=== PATIENT | male | born 1980 | race Caucasian/White ===

== ENCOUNTER 2017-10-07 20:39 | Emergency (ER) | payer SELFPAY | END 2017-10-07 20:58 | disposition left against medical advice (07) | LOC: ER 20:39 | DX: S09.90XA Unspecified injury of head, initial encounter (principal); X58.XXXA Exposure to other specified factors, initial encounter ==

== ENCOUNTER 2022-11-04 12:40 | Emergency (ER) | payer OTHER ==
[~2022-11-04] VITALS: Ht 185 cm; Wt 118.0 kg
[2022-11-04] MEDS ORDERED: ORPHENADRINE 60 MG/2 ML (NORFLEX) AMP (ED ONLY) IM ONE (14:15)
[2022-11-04] MEDS ORDERED: KETOROLAC 60 MG/2 ML VIAL IM ONE (14:15)
--- NOTE | 2022-11-04 14:17 | ED Back Pain ---
General Chief Complaint: Back Problems Stated Complaint: FELL OFF OF HORSE | LOWER BACK PAIN Nursing Triage Note: PT FELL BUCKED OFF HORSE ON THURSDAY, PT HAD +LOC, PT WAS HIT IN HEAD BY HORSE HEAD. TODAY CO OF BACK PAIN, PT HAS PAIN IN LOWER BACK DOWN L LEG. PT DENIES PROB W URINATION OR BOWEL, PT CO OF PAIN WORSENING WHEN TRIES TO GET OUT OF CARS OR TRUCKS RATES PAIN 02/05 Source of Information: Patient Exam Limitations: No Limitations History of Present Illness Date Seen by Provider: November 04, 2022 Time Seen by Provider: 14:06 Initial Comments 42-year-old male presents to the ED with complaints of left lower back pain starting Thursday. States that he was bucked off a horse, his foot got stuck in a stirrup, and he landed on his upper back and shoulders. States that he first noted some left lower back pain after he fell off the horse, but states it was mild. He reports that he was able to rope after the injury, but reports that the pain got worse. He denies loss of bowel or bladder, saddle paresthesia, numbness, tingling of legs. Reports his left leg "feels funny," like it is about to go to sleep, but states he has normal sensation. He states that he lost consciousness when he fell off the horse, thinks he might of hit his head. He reports his loss of consciousness was approximately 4 to 5 seconds. Reports some nausea since the head injury, denies vomiting. Denies confusion, difficulty with normal activities aside from and back pain causes difficulties, abnormal behavior, difficulty walking. Allergies and Home Medications Allergies Coded Allergies: No Known Drug Allergies (Unverified , 11/04/22) Patient Home Medication List Home Medication List Reviewed: Yes Baclofen (Baclofen) 10 Mg Tablet, 10 MG PO TID Prescribed by: Sowmya Murphy on 11/04/22 6616 Review of Systems Constitutional: see HPI Past Evdcnxb-Qhatlc-Llvkbk Hx Patient Social History Tobacco Use?: No Substance use?: No Alcohol Use?: Yes Alcohol type: Beer Alcohol Frequency: Couple times a week Immunizations Up To Date Influenza Vaccine Up-to-Date: No; Not Current First/Initial COVID19 Vaccinat: YES Past Medical History Surgery/Hospitalization HX: NO MED HX Physical Exam Vital Signs Vital Signs - First Documented 11/04/22 11/04/22 12:59 14:45 Temp 36.8 Pulse 74 Resp 16 B/P (MAP) 166/117 (133) Pulse Ox 97 O2 Delivery Room Air Capillary Refill : Less Than 3 Seconds Height, Weight, BMI Height: '" Weight: lbs. oz. kg; 34.00 BMI Method: General Appearance: No Apparent Distress, WD/WN HEENT: PERRL/EOMI Neck: Full Range of Motion, Normal Inspection, Non Tender, Supple Cardiovascular: Regular Rate, Rhythm Respiratory: Lungs Clear, Normal Breath Sounds, No Accessory Muscle Use, No Respiratory Distress Back: No Vertebral Tenderness, Muscle Spasm (Left lower back muscle tenderness to palpation) Extremity: Normal Inspection, Normal Range of Motion Neurologic/Psychiatric: Alert, No Motor/Sensory Deficits, Normal Mood/Affect Skin: Normal Color, Warm/Dry Progress/Results/Core Measures Results/Orders My Orders Orders - SOWMYA MURPHY APRN Ketorolac Injection (Toradol Injection) (11/04/22 14:15) Orphenadrine Inj (Ed Only) (Norflex Inje (11/04/22 14:15) Medications Given in ED Vital Signs/I&O 11/04/22 11/04/22 12:59 14:45 Temp 36.8 36.8 Pulse 74 70 Resp 16 16 B/P (MAP) 166/117 (133) 160/84 Pulse Ox 97 99 O2 Delivery Room Air Blood Pressure Mean: 133 Progress Progress Note : Time: 14:25 Progress Note Patient seen and evaluated, resting comfortably in bed, no acute distress. Based on exam and symptoms, this is likely a muscle strain. Muscles and left lower back are very tender to minimal palpation. No vertebral tenderness or step-offs. Considered CT head and neck, but deferred because [place] CT head rule is low risk, [place] C-spine rule also low risk. Will treat with Toradol and Norflex. And discharged with muscle relaxer. Discharge instructions and r eturn precautions provided. Departure Impression Primary Impression: Back strain Disposition: 01 HOME, SELF-CARE Condition: Stable Departure-Patient Inst. Decision time for Depature: 14:33 Referrals: LITTLE SERRANO DO (PCP/Family) Primary Care Physician Patient Instructions: Back Muscle Strain (DC) Add. Discharge Instructions: You may take 800 mg of ibuprofen every 8 hours with food to help with pain and inflammation. You may take 1000 mg of Tylenol every 8 hours for pain. Take baclofen as needed for muscle pain, it may make you sleepy. Follow-up with your primary care provider if symptoms are not improving. Return for severe pain, inability to walk, numbness or tingling in your inner thighs, loss of bowel or bladder, confusion, inability to perform normal activities, recurrent vomiting, or any other new, concerning, or worsening symptoms. All discharge instructions reviewed with patient and/or family. Voiced understanding. Scripts Baclofen (Baclofen) 10 Mg Tablet 10 MG PO TID, #21 TAB 0 Refills Prov: SOWMYA MURPHY APRN 11/04/22 SOWMYA MURPHY APRN November 04, 2022 14:17
[2022-11-04] MEDS ORDERED: BACL10TA PO (14:36)
[2022-11-04 14:45] VITALS: BP 160/84
== END 2022-11-04 14:45 | disposition home or self-care (01) ==
LOC: EDUNIT# 12:40 → ER 12:43
DX: M54.50 Low back pain, unspecified (principal); V80.010A Animal-rider injured by fall from or being thrown from horse in noncollision accident, initial encounter; Y93.52 Activity, horseback riding
CPT/HCPCS: 99284

== ENCOUNTER 2022-12-14 23:20 | Emergency (ER) | payer OTHER ==
[~2022-12-14] VITALS: Ht 182.9 cm; Wt 113.4 kg
[~2022-12-14 23:20] MED LIST: BACL10TA PO
[2022-12-15] MEDS ORDERED: KETOROLAC 30 MG/ML VIAL IVP STA (01:02)
[2022-12-15] MEDS ORDERED: LACTATED RINGERS 1,000 ML IV ONE (01:15)
[2022-12-15] MEDS ORDERED: ONDANSETRON 4 MG/2 ML (SDV) Z0FRAN IVP ONE (01:15)
[2022-12-15 01:22] LABS: BASOPHILS # (AUTO) 0.1 10^3/uL (0.0-0.1); BASOPHILS % (AUTO) 1 % (0-10); EOSINOPHILS # (AUTO) 0.3 10^3/uL (0.0-0.3); EOSINOPHILS % (AUTO) 4 % (0-10); HEMATOCRIT 39 % (40-54); HEMOGLOBIN 13.8 g/dL (13.3-17.7); LYMPHOCYTES # (AUTO) 3.2 10^3/uL (1.0-4.0); LYMPHOCYTES % (AUTO) 38 % (12-44); MEAN CORPUSCULAR HEMOGLOBIN 33 pg (25-34); MEAN CORPUSCULAR HGB CONC 35 g/dL (32-36); MEAN CORPUSCULAR VOLUME 95 fL (80-99); MEAN PLATELET VOLUME 10.5 fL (9.0-12.2); MONOCYTES # (AUTO) 0.7 10^3/uL (0.0-1.0); MONOCYTES % (AUTO) 9 % (0-12); NEUTROPHILS % (AUTO) 48 % (42-75); PLATELET COUNT 258 10^3/uL (130-400); WHITE BLOOD COUNT 8.3 10^3/uL (4.3-11.0)
[2022-12-15 01:24] LABS: BILIRUBIN,URINE NEGATIVE (NEGATIVE); CLARITY,URINE CLEAR; COLOR,URINE YELLOW; GLUCOSE, URINE (UA) NEGATIVE (NEGATIVE); KETONES,URINE NEGATIVE (NEGATIVE); LEUKOCYTE ESTERASE ,URINE NEGATIVE (NEGATIVE); NITRITE,URINE NEGATIVE (NEGATIVE); PH,URINE 7.5 (5-9); PROTEIN,URINE NEGATIVE (NEGATIVE)
[2022-12-15 01:29] LABS: CHLORIDE 103 MMOL/L (98-107); SODIUM 137 MMOL/L (135-145)
[2022-12-15 01:30] LABS: AMYLASE 36 U/L (25-125); CALCIUM 9.2 MG/DL (8.5-10.1)
[2022-12-15 01:31] LABS: GLUCOSE 115 MG/DL (70-105); TOTAL PROTEIN 6.7 GM/DL (6.4-8.2)
[2022-12-15 01:32] LABS: CARBON DIOXIDE 26 MMOL/L (21-32)
[2022-12-15 01:33] LABS: BILIRUBIN,TOTAL 0.4 MG/DL (0.1-1.0)
[2022-12-15 01:35] LABS: ALKALINE PHOSPHATASE 72 U/L (40-136); GFR ESTIMATED 111
[2022-12-15 01:36] LABS: BUN/CREATININE RATIO 21
[2022-12-15 01:38] LABS: AMPHETAMINE SCREEN, URINE NEGATIVE (NEGATIVE); BARBITURATE SCREEN URINE NEGATIVE (NEGATIVE); BENZODIAZEPINES SCREEN URINE NEGATIVE (NEGATIVE); CANNABINOID SCREEN, URINE NEGATIVE (NEGATIVE); COCAINE SCREEN URINE NEGATIVE (NEGATIVE); METHADONE STAT NEGATIVE (NEGATIVE); OPIATE SCREEN URINE NEGATIVE (NEGATIVE); OXYCODONE STAT NEGATIVE (NEGATIVE); PROPOXYPHENE STAT NEGATIVE (NEGATIVE); TRICYCLIC ANTIDEPRESSANTS SCRE NEGATIVE (NEGATIVE)
[2022-12-15 01:38] LABS: ALANINE AMINOTRANSFERASE 14 U/L (0-55)
[2022-12-15 01:39] LABS: AMORPHOUS SEDIMENT,UR LARGE AMOR PHOSPHATE /LPF; BACTERIA,URINE NEGATIVE /HPF
[2022-12-15 01:39] LABS: LIPASE 21 U/L (8-78)
[2022-12-15] MEDS ORDERED: PANT40TA2 PO (02:22)
[2022-12-15] MEDS ORDERED: KETO10TA PO (02:22)
[2022-12-15] MEDS ORDERED: ONDA8TAB13 PO (02:22)
--- NOTE | 2022-12-15 02:23 | ED Abdominal Pain ---
General Chief Complaint: Abdominal/GI Problems Stated Complaint: GALLBLADDER ATTACK Nursing Triage Note: pt ambulatory to room. states he has hx of gallbladder attack. states pain this evening was so bad it caused him to vomit. states he has right middle abd pain that wraps around to back. pt is A&Ox4, speech normal on arrival. pt at bedside Source of Information: Patient History of Present Illness Date Seen by Provider: Dec 14, 2022 Allergies and Home Medications Allergies Coded Allergies: No Known Drug Allergies (Unverified , 11/04/22) Patient Home Medication List Baclofen (Baclofen) 10 Mg Tablet, 10 MG PO TID Prescribed by: Sowmya Murphy on 11/04/22 1436 Past Cmonjpm-Oafzvg-Hsozkq Hx Immunizations Up To Date First/Initial COVID19 Vaccinat: YES Past Medical History Surgery/Hospitalization HX: NO MED HX Physical Exam Vital Signs Vital Signs - First Documented 12/15/22 00:36 Temp 36.7 Pulse 92 Resp 14 B/P (MAP) 170/103 (125) Pulse Ox 99 Capillary Refill : Height/Weight/BMI Height: '" Weight: lbs. oz. kg; 33.00 BMI Method: Progress/Results/Core Measures Results/Orders Lab Results Laboratory Tests Test 12/15/22 01:09 12/15/22 01:20 Range/Units White Blood Count 8.3 4.3-11.0 10^3/uL Red Blood Count 4.13 L 4.30-5.52 10^6/uL Hemoglobin 13.8 13.3-17.7 g/dL Hematocrit 39 L 40-54 % Mean Corpuscular Volume 95 80-99 fL Mean Corpuscular Hemoglobin 33 25-34 pg Mean Corpuscular Hemoglobin Concent 35 32-36 g/dL Red Cell Distribution Width 12.5 10.0-14.5 % Platelet Count 258 130-400 10^3/uL Mean Platelet Volume 10.5 9.0-12.2 fL Immature Granulocyte % (Auto) 0 % Neutrophils (%) (Auto) 48 42-75 % Lymphocytes (%) (Auto) 38 12-44 % Monocytes (%) (Auto) 9 0-12 % Eosinophils (%) (Auto) 4 0-10 % Basophils (%) (Auto) 1 0-10 % Neutrophils # (Auto) 4.0 1.8-7.8 10^3/uL Lymphocytes # (Auto) 3.2 1.0-4.0 10^3/uL Monocytes # (Auto) 0.7 0.0-1.0 10^3/uL Eosinophils # (Auto) 0.3 0.0-0.3 10^3/uL Basophils # (Auto) 0.1 0.0-0.1 10^3/uL Immature Granulocyte # (Auto) 0.0 0.0-0.1 10^3/uL Sodium Level 137 135-145 MMOL/L Potassium Level 4.0 3.6-5.0 MMOL/L Chloride Level 103 98-107 MMOL/L Carbon Dioxide Level 26 21-32 MMOL/L Anion Gap 8 5-14 MMOL/L Blood Urea Nitrogen 19 H 7-18 MG/DL Creatinine 0.90 0.60-1.30 MG/DL Estimat Glomerular Filtration Rate 111 BUN/Creatinine Ratio 21 Glucose Level 115 H 70-105 MG/DL Calcium Level 9.2 8.5-10.1 MG/DL Corrected Calcium 9.2 8.5-10.1 MG/DL Total Bilirubin 0.4 0.1-1.0 MG/DL Aspartate Amino Transf (AST/SGOT) 14 5-34 U/L Alanine Aminotransferase (ALT/SGPT) 14 0-55 U/L Alkaline Phosphatase 72 40-136 U/L C-Reactive Protein High Sensitivity 0.36 0.00-0.50 MG/DL Total Protein 6.7 6.4-8.2 GM/DL Albumin 4.0 3.2-4.5 GM/DL Amylase Level 36 25-125 U/L Lipase 21 8-78 U/L Serum Alcohol < 10 <10 MG/DL Urine Color YELLOW Urine Clarity CLEAR Urine pH 7.5 5-9 Urine Specific [place] 1.010 L 1.016-1.022 Urine Protein NEGATIVE NEGATIVE Urine Glucose (UA) NEGATIVE NEGATIVE Urine Ketones NEGATIVE NEGATIVE Urine Nitrite NEGATIVE NEGATIVE Urine Bilirubin NEGATIVE NEGATIVE Urine Urobilinogen 0.2 < = 1.0 MG/DL Urine Leukocyte Esterase NEGATIVE NEGATIVE Urine RBC (Auto) NEGATIVE NEGATIVE Urine RBC NONE /HPF Urine WBC NONE /HPF Urine Crystals PRESENT H /LPF Urine Amorphous Sediment LARGE CHON PHOSPHATE H /LPF Urine Bacteria NEGATIVE /HPF Urine Casts NONE /LPF Urine Mucus NEGATIVE /LPF Urine Culture Indicated NO Urine Opiates Screen NEGATIVE NEGATIVE Urine Oxycodone Screen NEGATIVE NEGATIVE Urine Methadone Screen NEGATIVE NEGATIVE Urine Propoxyphene Screen NEGATIVE NEGATIVE Urine Barbiturates Screen NEGATIVE NEGATIVE Ur Tricyclic Antidepressants Screen NEGATIVE NEGATIVE Urine Phencyclidine Screen NEGATIVE NEGATIVE Urine Amphetamines Screen NEGATIVE NEGATIVE Urine Methamphetamines Screen NEGATIVE NEGATIVE Urine Benzodiazepines Screen NEGATIVE NEGATIVE Urine Cocaine Screen NEGATIVE NEGATIVE Urine Cannabinoids Screen NEGATIVE NEGATIVE My Orders Orders - LEONCIO PEDROZA DO Ed Iv/Invasive Line Start (12/15/22 00:56) Monitor-Rhythm Ecg Trace Only (12/15/22 00:56) Alcohol (12/15/22 00:56) Amylase (12/15/22 00:56) Cbc With Automated Diff (12/15/22 00:56) Comprehensive Metabolic Panel (12/15/22 00:56) Hs C Reactive Protein (12/15/22 00:56) Drug Screen Stat (Urine) (12/15/22 00:56) Lipase (12/15/22 00:56) Ua Culture If Indicated (12/15/22 00:56) Ed Iv/Invasive Line Start (12/15/22 01:02) Lactated Ringers (Lr 1000 Ml Iv Solution (12/15/22 01:15) Ondansetron Injection (Zofran Injectio (12/15/22 01:15) Ketorolac Injection (Toradol Injection) (12/15/22 01:02) Medications Given in ED Current Medications Medications Dose Ordered Sig/Heri Route Start Time Stop Time Status Last Admin Dose Admin Lactated Ringer's 1,000 ml @ 0 mls/hr Q0M ONCE IV 12/15/22 01:15 12/15/22 01:16 DC 12/15/22 01:18 999 MLS/HR Vital Signs/I&O 12/15/22 00:36 Temp 36.7 Pulse 92 Resp 14 B/P (MAP) 170/103 (125) Pulse Ox 99 Blood Pressure Mean: 125 Departure Impression Primary Impression: Recurrent biliary colic Disposition: HOME, SELF-CARE Condition: Improved Departure-Patient Inst. Decision time for Depature: 02:15 Referrals: NICOLE GARCIA WILLIAM J DO (PCP/Family) Primary Care Physician Patient Instructions: Gallstones ED Add. Discharge Instructions: CLEAR LIQUIDS--WATER, BROTH, JELLO, GATORADE BRATS DIET--BANANAS, RICE, APPLESAUCE, TOAST, SALTINES FOLLOW UP WITH DR. GARCIA THIS WEEK FOR FURTHER CARE--CALL IN THE MORNING TO SCHEDULE AN APPOINTMENT All discharge instructions reviewed with patient and/or family. Voiced understanding. Scripts Ketorolac Tromethamine (Ketorolac Tromethamine) 10 Mg Tablet 10 MG PO Q6H for Pain, #15 TAB Prov: LEONCIO PEDROZA DO 12/15/22 Pantoprazole Sodium (Protonix) 40 Mg Tablet.dr 40 MG PO DAILY, #15 TAB Prov: LEONCIO PEDROZA DO 12/15/22 Ondansetron (Ondansetron Odt) 8 Mg Tab.rapdis 8 MG PO Q6H, #10 TAB Prov: LEONCIO PEDROZA DO 12/15/22 LEONCIO PEDROZA DO Dec 15, 2022 02:22
[2022-12-15 02:45] VITALS: BP 151/98
== END 2022-12-15 02:45 | disposition home or self-care (01) ==
LOC: EDUNIT# 23:20 → ER 23:24
DX: K80.50 Calculus of bile duct without cholangitis or cholecystitis without obstruction (principal)
CPT/HCPCS: 80053; 80306; 81000; 82150; 83690; 85025; 86141; 93041; 99284; G0480; 36415; 80320

== ENCOUNTER 2022-12-18 05:28 | Outpatient (CLI) | payer OTHER ==
[~2022-12-18] VITALS: Ht 185.4 cm; Wt 121.0 kg
[~2022-12-18 05:28] MED LIST changes: +KETO10TA PO; +ONDA8TAB13 PO; +PANT40TA2 PO
== END 2022-12-18 12:14 | disposition home or self-care (01) ==
LOC: PREOP 05:28 → MERGE 05:28 → PREOP 12:14
PROVIDERS: ATTEND Surgery
DX: Z01.818 Encounter for other preprocedural examination (principal)

== ENCOUNTER 2022-12-25 08:32 | Day surgery (SDC) | payer OTHER ==
[~2022-12-25] VITALS: Ht 185.4 cm; Wt 121.0 kg
[2022-12-25] VITALS (12 sets, daily range): BP systolic 148–211; BP diastolic 100–125
[2022-12-25] MEDS: LACTATED RINGERS 1,000 ML IV PRN ×2 (09:00→12:07)
[2022-12-25] MEDS ORDERED: ceFAZolin INJECTION 2,000 MG in NS (IVPB) 50 ML IV ONE (09:00)
[2022-12-25] MEDS ORDERED: BUP/EPI 0.5% 1:200,000 (SENSORCAINE) 30 ML VIAL ONE (09:03)
[2022-12-25] MEDS ORDERED: BUP/EPI 0.5% 1:200,000 (SENSORCAINE) 30 ML VIAL INJ ONE (09:05)
[2022-12-25] MEDS ORDERED: IOHEXOL 300 MG/ML 30 ML (OMNIPAQUE 300) VIAL INJ ONE (09:05)
[2022-12-25] MEDS ORDERED: NS (IVPB) 50 ML ONE (09:14)
[2022-12-25] MEDS ORDERED: ceFAZolin INJECTION 2,000 MG ONE (09:14)
--- NOTE | 2022-12-25 09:36 | Progress Note-Pre Operative ---
Pre-Operative Progress Note Date H&P Reviewed: Dec 25, 2022 Time H&P Reviewed: 09:36 History & Physical: H&P Reviewed, Patient Examed, No changes noted Pre-Operative Diagnosis: cholelithiasis NICOLE GARCIA DO Dec 25, 2022 09:36
[2022-12-25] MEDS ORDERED: MIDAZOLAM 2 MG/2 ML (VERSED) VIAL ONE ×2 (09:38→10:02)
[2022-12-25] MEDS ORDERED: MIDAZOLAM 2 MG/2 ML (VERSED) VIAL IV ONE (09:45)
[2022-12-25] MEDS ORDERED: LIDOCAINE PF 2% 5 ML (XYLOCAINE) VIAL ONE (10:02)
[2022-12-25] MEDS ORDERED: proPOfol 200 MG/20 ML (DIPRIVAN) VIAL IV ONE (10:02)
[2022-12-25] MEDS ORDERED: SEVOFLURANE (ULTANE) 15 ML INHAL SOLN ONE ×2 (10:02→11:53)
[2022-12-25] MEDS ORDERED: ONDANSETRON 4 MG/2 ML (SDV) Z0FRAN ONE ×2 (10:02→14:15)
[2022-12-25] MEDS ORDERED: fentaNYL INJ 100 MCG/2 ML AMP ONE ×2 (10:02→13:13)
[2022-12-25] MEDS ORDERED: ROCURONIUM 50 MG/5 ML (ZEMURON) VIAL IV ONE (10:03)
[2022-12-25] MEDS ORDERED: ACHD5005 PO ×2 (12:43→16:17)
[2022-12-25] MEDS ORDERED: DOCU-143 PO ×2 (12:43→16:17)
--- NOTE | 2022-12-25 12:44 | Discharge Inst-Simple/Standard ---
Discharge Inst-Standard Discharge Medications New, Converted or Re-Newed RX: Transmitted to Pharmacy Patient Instructions/Follow Up Plan of Care/Instructions/FU: 2 weeks Jules Activity as Tolerated: No Discharge Diet: Regular Diet Other Inst to Patient Follow up Appt: Make appointment for 2 weeks. Instructions: No lifting greater than 10 pounds. No strenuous activity. May shower in 24 hours, no tub bath or soaking. Use incentive spirometer at home as directed. No Smoking Skin/Wound Care: You have special glue over incision, it will fall off on it's own. Symptoms to Report: Appetite Changes, Extremity Discoloration, Numbness/Tingling, Swelling Increased, Bleeding Excessive, Eyesight Changes, Pain Increased, Urine Color Change, Constipation(Persistent), Fever over 101 degree F, Pain/Pressure in chest, Urinating Difficulty, Cough Up/Vomit Blood, Heart Beat Irreg/Pounding, Pain/Pressure in jaw, Vaginal Bleeding Increase, Cramps in feet or legs, Lightheadedness, Pain/Pressure in shoulder, Diarrhea(Persistent), Memory Changes Suddenly, Questions/Concerns, Weight gain consecutive days, Dizziness/Fainting, Nausea/Vomiting, Shortness of Breath, Weight gain over 2 pounds. If eyes or skin turn yellow notify physician. If questions or concerns contact your physician Or seek help at emergency department. NICOLE GARCIA DO Dec 25, 2022 12:44
--- NOTE | 2022-12-25 12:46 | Progress Note-Post Operative ---
Post-Operative Progess Note Surgeon (s)/Fur Cutting Machine Operator (s) Surgeon NICOLE GARCIA DO Fur Cutting Machine Operator: Dr. Limon to assist in retraction dissection and closure Pre-Operative Diagnosis cholelithiasis Post-Operative Diagnosis cholelithiasis, cystic duct stone, cholecystitis Procedure & Operative Findings Date of Procedure 12/25/22 Procedure Performed/Findings PROCEDURE: Laparoscopic cholecystectomy with intraoperative cholangiogram. COMPLICATIONS: None. PROCEDURE: The patient was taken to the operating suite and was prepped and draped in sterile fashion. A surgical pause was performed. Just superior to the umbilicus, a 12 mm incision was made. Dissection was taken down to the fascia, which was then scored and grasped with a Denzel and the abdomen was then entered. A 0 Vicryl suture was placed in a [id number] fashion and a Meraz trocar was placed and secured. Pneumoperitoneum was achieved. A 5mm trochar place in the subxyphoid and 2 in the right upper quadrant. The gallbladder was then grasped and elevated. The cystic duct, and cystic artery were then dissected out. Clip was placed on the distal portion of the cystic duct which was then partially transected. Small stone in cystic stone was removed. An arrow catheter was inserted into the duct. The cholangiogram was then performed. No filing defects and contrast made its way into the duodenum. Catheter removed. Clips were placed on proximal portion of the cystic duct and then the duct was then transected. Clips were placed along the proximal and distal portion of the cystic artery which was then transected. Hook cautery was used to dissect the gallbladder from the gallbladder fossa achieving hemostasis. The gallbladder was placed in an Endobag and removed through the 12 mm trocar site. The abdomen was then reinspected. Copious amounts of irrigation were used to irrigate the abdomen and there were no signs of active bleeding. Hemostasis had been achieved. The 12 mm fascial defect was then closed with 0 Vicryl suture that had been placed in a [id number] fashion. The abdomen was then desufflated, the trocars were removed. The abdomen was then washed and dried. The skin was then closed using 4-0 Monocryl in a subcuticular fashion. The abdomen was washed and dried and Skin Affix was place over incisions. Patient tolerated the procedure well without any complications and was taken to the recovery room in stable condition. Anesthesia Type general Estimated Blood Loss Estimated blood loss (mL): minimal Specimens/Packing Specimens Removed gallbladder NICOLE GARCIA DO Dec 25, 2022 12:46
--- NOTE | 2022-12-25 12:59 | Anesthesia-General Post-Op ---
General Patient Condition Mental Status/LOC: Same as Preop Cardiovascular: Satisfactory Nausea/Vomiting: Absent Respiratory: Satisfactory Pain: Controlled Complications: Absent Post Op Complications Complications None Follow Up Care/Instructions Patient Instructions None needed. Anesthesia/Patient Condition Patient Condition Patient is doing well, no complaints, stable vital signs, no apparent adverse anesthesia problems. No complications reported per nursing. ABILIO ESTEVES APPLIANCE WORKER Dec 25, 2022 12:59
[2022-12-25] MEDS ORDERED: morphine INJ 10 MG/ML 1ML (SYR OR VIAL) IVP ONE (13:00)
[2022-12-25] MEDS ORDERED: MEPERIDINE (DEMEROL) INJ 50 MG/ML IVP ONE (13:00)
[2022-12-25] MEDS ORDERED: fentaNYL INJ 100 MCG/2 ML AMP IVP ONE (13:00)
[2022-12-25] MEDS ORDERED: morphine INJ 10 MG/ML 1ML (SYR OR VIAL) ONE (13:00)
[2022-12-25] MEDS ORDERED: ONDANSETRON 4 MG/2 ML (SDV) Z0FRAN IVP PRN (13:00)
[2022-12-25] MEDS ORDERED: KETOROLAC 30 MG/ML VIAL ONE (13:05)
--- NOTE | 2022-12-25 13:59 | Diagnostic Imaging Report ---
INDICATION: Abdominal pain IMPRESSION: 2.36 of fluoroscopy were used during laparoscopic cholecystectomy. Four images were stored. Images show intraoperative cholangiogram. The cystic duct and common duct are patent. There are no filling defects. Contrast appears to be passing into the duodenum. Dictated by: Dictated on workstation # [id number]
[2022-12-25] MEDS ORDERED: HYDROcodone/APAP 5 MG/325 MG (LORTAB) TAB PO ONE (14:15)
[2022-12-25] MEDS ORDERED: ONDANSETRON 4 MG/2 ML (SDV) Z0FRAN IVP ONE (14:15)
[2022-12-25] MEDS ORDERED: HYDROcodone/APAP 5 MG/325 MG (LORTAB) TAB ONE (14:15)
== END 2022-12-25 16:05 ==
LOC: SDC 08:32 → MERGE 09:50 → SDC 16:05
PROVIDERS: ATTEND Surgery
DX: K80.12 Calculus of gallbladder with acute and chronic cholecystitis without obstruction (principal); I10 Essential (primary) hypertension; E66.9 Obesity, unspecified; Z68.35 Body mass index [BMI] 35.0-35.9, adult; Z28.311 Partially vaccinated for COVID-19
CPT/HCPCS: 76000; 87081